=== PATIENT | female | born 1945 | race Caucasian/White ===

== ENCOUNTER 2017-04-10 08:07 | Day surgery (SDC) | payer OTHER, MEDICAID ==
[2017-04-10] MEDS ORDERED: TETRACAINE 0.5% OPHTH 1 DOSE AFFEYE ONE ×2 (08:23→08:47)
[2017-04-10] MEDS ORDERED: MYDRIACIL OPHTH 1 DOSE AFFEYE ONE ×3 (08:24→08:28)
[2017-04-10] MEDS ORDERED: AK-DILATE 2.5% OPHTH 1 DOSE AFFEYE ONE (08:25)
[2017-04-10] MEDS ORDERED: AK-DILATE 2.5% OPHTH 1 DOSE OP ONE ×2 (08:27→08:29)
[2017-04-10 10:59] VITALS: BP 214/77
== END 2017-04-10 08:55 | disposition home or self-care (01) ==
LOC: SURG1 08:07
PROVIDERS: ATTEND Ophthalmology
PROC: 085F3ZZ Destruction of Left Retina, Percutaneous Approach (ICD-10-PCS; principal; 2017-04-10 06:15)
DX: E11.3312 Type 2 diabetes mellitus with moderate nonproliferative diabetic retinopathy with macular edema, left eye (principal)